=== PATIENT | male | born 1945 | race Caucasian/White ===

== ENCOUNTER 2016-04-17 12:52 | Emergency (ER) | payer MEDICARE, MEDICAID ==
[2016-04-17 13:24] VITALS: BP 130/74
[2016-04-17] MEDS ORDERED: Sodium Phosphate ADULT ENEMA* 118 ml bottle PR ONE (14:23)
--- NOTE | 2016-04-17 15:11 | ED ---
Trevor Piña Adam, scribed for Dhaval Bello MD on 04/17/16 at 1420 . GI/ HPI - HPI Summary HPI Summary: A 71 y/o male presents to the ED c/o constipation for 2 days. He denies abdominal pain, fever, or chills, and had his last BM 2 days ago that he describes as hard. Patient took Colace today with no alleviation. He has no hx of constipation. Surgical hx includes two abdominal hernia repairs, FHx is negative. - History of Current Complaint Chief Complaint: EDRectalPain Time Seen by Provider: 04/17/16 14:12 Stated Complaint: constipation Hx Obtained From: Patient Onset/Duration: Started Days Ago - 2 days Timing: Constant Severity: Moderate Current Severity: Moderate Pain Intensity: 7 Location of Pain: Rectal Associated Signs and Symptoms: Positive: Constipation. Negative: Blood w/Stool Aggravating Factor(s): Nothing Alleviating Factor(s): Nothing - Negative: Colace - Allergy/Home Medications Allergies/Adverse Reactions: Allergies Allergy/AdvReac Type Severity Reaction Status Date / Time No Known Allergies Allergy Verified 04/17/12 09:58 PMH/Surg Hx/FS Hx/Imm Hx Endocrine/Hematology History: Denies: Hx Diabetes Cardiovascular History: Denies: Hx Hypertension GI History: Reports: Other GI Disorders - Negative: Constipation - Surgical History Surgery Procedure, Year, and Place: Abdominal hernia repair 1991 & 2003 Infectious Disease History: No Infectious Disease History: Denies: Traveled Outside the [place] in Last 30 Days - Family History Known Family History: Positive: Diabetes - Mother - Social History Occupation: Retired Lives: Alone Alcohol Use: Daily - 1 beer per day Substance Use Type: Reports: None Hx Tobacco Use: Yes Smoking Status (MU): Former Smoker - Quit 3 years ago Type: Cigarettes Review of Systems Constitutional: Negative Negative: Fever Eyes: Negative ENT: Negative Cardiovascular: Negative Respiratory: Negative Gastrointestinal: Negative Positive: other - Constipation for 2 days Musculoskeletal: Negative Skin: Negative Neurological: Negative Psychological: Normal All Other Systems Reviewed And Are Negative: Yes Physical Exam Triage Information Reviewed: Yes Vital Signs On Initial Exam: Initial Vitals Temp Pulse Resp BP Pulse Ox 98.4 F 117 99 130/74 99 04/17/16 13:17 04/17/16 13:17 04/17/16 13:17 04/17/16 13:17 04/17/16 13:17 Vital Signs Reviewed: Yes Appearance: Positive: Well-Appearing, No Pain Distress Skin: Positive: Warm, Skin Color Reflects Adequate Perfusion, Dry Head/Face: Positive: Normal Head/Face Inspection Eyes: Positive: EOMI, APOLLO ENT: Positive: Normal ENT inspection Neck: Positive: Supple, Nontender Respiratory/Lung Sounds: Positive: Clear to Auscultation, Breath Sounds Present Cardiovascular: Positive: Tachycardia Abdomen Description: Positive: Nontender, Soft Bowel Sounds: Positive: Present Musculoskeletal: Positive: Normal Neurological: Positive: Normal, Sensory/Motor Intact, Alert, Oriented to Person Place, Time Psychiatric: Positive: Affect/Mood Appropriate Diagnostics - Vital Signs Vital Signs Temp Pulse Resp BP Pulse Ox 04/17/16 13:17 98.4 F 117 99 130/74 99 - Laboratory Lab Statement: Any lab studies that have been ordered have been reviewed, and results considered in the medical decision making process. GIGU Course/Dx - Course Assessment/Plan: PATIENT HAD BM IN ED AFTER FLEET'S ENEMA. FEELS BETTER, WISHES TO GO HOME. DISCHARGE HOME STABLE. - Diagnoses Provider Diagnoses: Constipation Discharge - Discharge Plan Condition: Stable Disposition: HOME Patient Education Materials: Constipation (ED) Additional Instructions: FOLLOW UP WITH YOUR DOCTOR. RETURN TO THE EMERGENCY DEPARTMENT FOR ANY WORSENING OF YOUR CONDITION OR QUESTIONS OR CONCERNS. The documentation as recorded by the Trevor sadler Adam accurately reflects the service I personally performed and the decisions made by me, Dhaval Bello MD.
== END 2016-04-17 15:12 | disposition home or self-care (01) ==
LOC: ED 12:52
DX: K59.00 Constipation, unspecified (principal); Z87.891 Personal history of nicotine dependence
CPT/HCPCS: 99282; A9270-GY

== ENCOUNTER 2023-10-28 08:06 | Inpatient (IN) ==
[2023-10-28 09:11] LABS: Hematocrit 34.3 % (38-53); Hemoglobin 11.6 g/dL (13.2-16.3); Mean Corpuscular Hemoglobin 31.7 pg (27-33); Mean Corpuscular Hgb Conc 33.8 g/dL (31-36); Mean Corpuscular Volume 93.9 fL (80-97); Red Blood Count 3.65 10^6/uL (4.06-5.63)
[2023-10-28 09:15] LABS: INR 1.15 (0.83-1.13)
[2023-10-28 09:27] LABS: High Sens Troponin Baseline 14 pg/mL (<20)
[2023-10-28 09:42] LABS: ALT 12 U/L (7-52); Albumin 3.9 g/dL (3.2-5.2); Albumin/Globulin Ratio 1.6 (1-3); Alkaline Phosphatase 43 U/L (35-149); Anion Gap 11 mmol/L (2-16); Blood Urea Nitrogen 27 mg/dL (6-24); C Reactive Protein 19.56 mg/L (<8.01); CO2 Carbon Dioxide 24 mmol/L (22-32); Calcium 8.8 mg/dL (8.6-10.3); Chloride 103 mmol/L (101-111); Creatinine, Serum 0.89 mg/dL (0.67-1.17); Globulin 2.5 g/dL (2-4); Glucose 100 mg/dL (70-100); Sodium 138 mmol/L (135-145); Total Bilirubin 0.9 mg/dL (0.2-1.0); Total Protein 6.4 g/dL (6.4-8.9); eGFR CKD-EPI 87.7 (>60)
[2023-10-28 10:26] LABS: ABS Basophils 0.1 10^3/uL (0.0-0.1); ABS Eosinophils 0.1 10^3/uL (0.0-0.5); ABS Lymphocytes 1.1 10^3/uL (1.0-4.8); ABS Monocytes 0.9 10^3/uL (0.0-1.1); ABS Neutrophils 4.2 10^3/uL (1.5-7.6); ABS Nucleated RBC 0.01 10^3/ul; Eosinophil % 1.2 %; Large Platelets Present; Lymphocyte % 17.1 %; Mean Platelet Volume 10.8 fL (7.5-11.2); Nucleated Red Blood Cells % 0.1 %/100WBC (0.0-0.8); Platelet Count 122 10^3/uL (150-450); White Blood Count 6.4 10^3/uL (3.6-10.2)
[2023-10-28 10:59] LABS: Potassium Redraw 4.3 mmol/L (3.5-5.0)
[2023-10-28 11:46] LABS: TSH Ultra Thyroid Stim Horm 0.98 mcIU/mL (0.34-5.60)
[2023-10-28 11:48] LABS: Free T4 1.08 ng/dL (0.61-1.12)
[2023-10-28 11:52] LABS: Ferritin 153.1 ng/mL (24-336)
[2023-10-28] MEDS: Iohexol 300 (CONTRAST) 10 ML SDV IV ONE (20:20)
[2023-10-28] MEDS: Enoxaparin 40 MG/0.4 ML SYR SUBCUT SCH (21:06)
[2023-10-28 22:49] LABS: Urine Appearance Clear; Urine Bacteria Absent /HPF (Absent); Urine Bilirubin Negative (Negative); Urine Blood 1+ (Negative); Urine Color Light-Yellow; Urine Glucose Negative (Negative); Urine Ketones 1+ (Negative); Urine Nitrite Negative (Negative); Urine Protein Negative (Negative); Urine Red Blood Cell 1+(3-5/hpf) /HPF (0-Trace); Urine Specific Gravity >1.050 (1.002-1.030); Urine Squamous Epithelial Cell Present /HPF (Absent); Urine Urobilinogen Negative (Negative); Urine White Blood Cell Trace(0-5/hpf) /HPF (0-Trace); Urine pH 5.5 (5.0-8.0)
[2023-10-29] MEDS ORDERED: NS 0.9% 1000 ml BAG 1,000 ML IV SCH (02:00)
[2023-10-29 06:49] LABS: Calcium 7.9 mg/dL (8.6-10.3); Creatinine, Serum 1.01 mg/dL (0.67-1.17); Magnesium 1.9 mg/dL (1.9-2.7); Potassium 3.9 mmol/L (3.5-5.0); eGFR CKD-EPI 76.1 (>60)
[2023-10-29 07:06] LABS: ABS Basophils 0.1 10^3/uL (0.0-0.1); ABS Eosinophils 0.1 10^3/uL (0.0-0.5); ABS Lymphocytes 0.8 10^3/uL (1.0-4.8); ABS Monocytes 0.9 10^3/uL (0.0-1.1); ABS Neutrophils 4.5 10^3/uL (1.5-7.6); Eosinophil % 0.9 %; Hematocrit 31.4 % (38-53); Lymphocyte % 13.2 %; Mean Corpuscular Hemoglobin 32.5 pg (27-33); Mean Corpuscular Hgb Conc 34.9 g/dL (31-36); Mean Corpuscular Volume 93.1 fL (80-97); Mean Platelet Volume 9.9 fL (7.5-11.2); Platelet Count 115 10^3/uL (150-450); Red Blood Count 3.37 10^6/uL (4.06-5.63); Red Cell Distribution Width 13.4 % (12-17); White Blood Count 6.3 10^3/uL (3.6-10.2)
[2023-10-29] MEDS: Sulfur Hexaflouride MICROSPHR 25 MG VIAL IV ONE (09:28)
[2023-10-29] MEDS: Potassium Chlor 20 meq TAB.ER PO ONE (11:01)
[2023-10-29] MEDS: Magnesium Sulfate 2 gm BAG 2 GM/50 ML BAG IVPB ONE (11:02)
[2023-10-29] MEDS: cefTRIAXone 1 gm/50 mL D5W 1 GM/50 ML BAG IV SCH (11:02)
[2023-10-29] MEDS: NS 0.9% 1000 ml BAG 1,000 ML IV SCH (11:02)
[2023-10-29] MEDS: Senna TAB 8.6 mg TAB PO PRN (11:19)
[2023-10-29] MEDS: Polyethylene Glycol 3350 17 GM PACKET PO ONE (13:49)
[2023-10-29] MEDS ORDERED: Heparin 2 UNITS/ML IVPREMIX 0 UNIT/0 ML BAG IV ONE (16:11)
[2023-10-29] MEDS ORDERED: Lidocaine 1% VIAL 10 MG/ML 30 ML VIAL ONE ×2 (16:11→17:12)
[2023-10-29] MEDS ORDERED: Midazolam 5 mg/5 ml VIAL 1 mg/ml 5 ml VIAL (5 mg) ONE (16:11)
[2023-10-29] MEDS ORDERED: fentaNYL 100 mcg/2 ml 50 MCG/ML VIAL ONE ×2 (16:11→17:03)
[2023-10-29] MEDS: ceFAZolin 2 GM PREMIX 2 GM/50 ML BAG IV ONE (16:48)
[2023-10-29] MEDS ORDERED: Iohexol 300 (CONTRAST) 10 ML SDV ONE ×2 (16:56→17:04)
[2023-10-29] MEDS: fentaNYL 100 mcg/2 ml 50 MCG/ML VIAL IV SLOW PU ONE (17:18)
[2023-10-29] MEDS: Midazolam 10 mg/10 ml VIAL 1 mg/ml 10 ml VIAL (10 mg) IV SLOW PU ONE (17:18)
[2023-10-30 05:50] LABS: ABS Eosinophils 0.1 10^3/uL (0.0-0.5); ABS Lymphocytes 0.6 10^3/uL (1.0-4.8); ABS Monocytes 0.7 10^3/uL (0.0-1.1); ABS Neutrophils 4.9 10^3/uL (1.5-7.6); Eosinophil % 1.2 %; Hematocrit 33.5 % (38-53); Hemoglobin 11.5 g/dL (13.2-16.3); Lymphocyte % 9.9 %; Mean Corpuscular Hemoglobin 32.1 pg (27-33); Mean Corpuscular Hgb Conc 34.5 g/dL (31-36); Mean Corpuscular Volume 93.2 fL (80-97); Mean Platelet Volume 10.4 fL (7.5-11.2); Nucleated Red Blood Cells % 0.1 %/100WBC (0.0-0.8); Platelet Count 135 10^3/uL (150-450); Red Blood Count 3.59 10^6/uL (4.06-5.63); Red Cell Distribution Width 13.7 % (12-17); White Blood Count 6.3 10^3/uL (3.6-10.2)
[2023-10-30 06:34] LABS: Anion Gap 9 mmol/L (2-16); Blood Urea Nitrogen 22 mg/dL (6-24); CO2 Carbon Dioxide 24 mmol/L (22-32); Calcium 7.6 mg/dL (8.6-10.3); Chloride 103 mmol/L (101-111); Creatinine, Serum 0.92 mg/dL (0.67-1.17); Glucose 90 mg/dL (70-100); Magnesium 2.2 mg/dL (1.9-2.7); Sodium 136 mmol/L (135-145); eGFR CKD-EPI 85.1 (>60)
[2023-10-30 07:52] LABS: Potassium, Whole Blood 4.4 mmol/L (3.4-4.5)
[2023-10-30] MEDS: Polyethylene Glycol 3350 17 GM PACKET PO SCH (09:45)
[2023-10-30 12:51] VITALS: BP 120/89
[2023-10-30] MEDS: Sodium Phosphate ADULT ENEMA 133 ML BTL PR ONE (16:48)
[2023-10-31 20:13] LABS: Anaplasma phagocytophilum Negative (Negative); B. miyamotoi PCR, B Negative (Negative); Babesia divergens/MO-1 Negative (Negative); Babesia ducani Negative (Negative); Ehrlichia chaffeensis Negative (Negative); Ehrlichia ewingii/canis Negative (Negative); Ehrlichia muris eauclairensis Negative (Negative)
== END 2023-10-30 15:50 | disposition home or self-care (01) | DRG 244 ==
LOC: ED 08:06 → EDHOLD 11:44 → ICU 13:22
PROVIDERS: ADMIT Student in an Organized Health Care Education/Training Program; ATTEND Student in an Organized Health Care Education/Training Program